=== PATIENT | female | born 1990 | race Two or more races ===

== ENCOUNTER 2024-01-02 00:18 | Emergency (ER) | payer BC, OTHER ==
[~2024-01-02] VITALS: Ht 162.6 cm; Wt 73.4 kg
[2024-01-02 00:37] VITALS: BP 108/78; PULSE 61; RESP 14; O2SAT 98
== END 2024-01-02 03:38 | disposition left against medical advice (07) ==
LOC: ER 00:18
DX: S41.152A Open bite of left upper arm, initial encounter (principal); Z53.21 Procedure and treatment not carried out due to patient leaving prior to being seen by health care provider; W55.01XA Bitten by cat, initial encounter; Y93.89 Activity, other specified; Y92.89 Other specified places as the place of occurrence of the external cause; Y99.8 Other external cause status